=== PATIENT | male | born 2000 | race American Indian/Alaskan Native ===

== ENCOUNTER 2021-05-13 03:56 | Emergency (ER) | payer SELFPAY ==
[2021-05-13 04:18] VITALS: BP 128/88
--- NOTE | 2021-05-13 07:58 | Emergency Department Report ---
Chief Complaint: Medical Clearance Stated Complaint: CASE MANAGMENT Time Seen by Provider: 05/13/21 07:56 - HPI History of Present Illness: 20-year-old -[place] male presents to the emergency room stating he he has nowhere to sleep. Patient states he is recently relocated from [place] from doing a job and is here in this area and has nowhere to stay. Patient has no other concerns. - Exam Vital Signs: Vital Signs 05/13/21 04:14 Temperature 98.0 F Pulse Rate 71 Respiratory 16 Rate Blood Pressure 128/88 O2 Sat by Pulse 96 Oximetry Physical Exam: General: Awake, appropriately interactive, no acute distress. Neck: Supple. Full range of motion intact. Cardiovascular: Normal peripheral perfusion. Pulmonary: No respiratory distress. Patient is speaking normally without use of accessory muscles. Skin: No apparent rashes or lesions. Neurological: No facial asymmetry. Speech is clear. Follows commands. Patient is alert and oriented. Musculoskeletal: Full range of motion, no crepitus. Able to bear weight and ambulate without difficulty. Distal neurovascular and motor/sensory function is intact. Psych: Cooperative. Appropriate mood and affect. MSE screening note: Focused history and physical exam performed. Due to findings the following was ordered: Patient will be given a handout to the homeless shelters. ED Disposition for MSE Clinical Impression: Homeless single person Disposition: 01 HOME / SELF CARE / HOMELESS Is pt being admited?: No Does the pt Need Aspirin: No Condition: Stable Additional Instructions: Please follow-up with one of the [facility]. Handout was provided to you. Time of Disposition: 07:58
== END 2021-05-13 08:30 | disposition home or self-care (01) ==
LOC: ED 03:56
DX: Z00.8 Encounter for other general examination (principal); Z59.00 Homelessness unspecified
CPT/HCPCS: 99282